=== PATIENT | female | born 1960 | race Caucasian/White ===

== ENCOUNTER 2019-03-25 12:03 | Emergency (ER) | payer BC, SELFPAY ==
[2019-03-25] VITALS (61 sets, daily range): BP systolic 108–158; BP diastolic 61–93; PULSE 62–101; RESP 10–27; TEMP 37.1; O2SAT 92–100
--- NOTE | 2019-03-25 12:16 | ED.GENADUL_ITS ---
Discharge Plan Disposition Patient Disposition: HOME Condition: Improving Discharge Details Chief Complaint: SOB Clinical Impression: Heart palpitations Primary Care Provider: Nahomi Perales ED Provider: Ivan Juarez Home Meds and New Rx's Prescriptions: Continued lisinopril 20 mg Tablet 20 mg PO DAILY RF: 0 bupropion HCl 100 mg Tablet Sustained-Release 12 Hr 100 mg PO DAILY RF: 0 Discharge Instructions Instructions: Palpitations (ED) Additional Instructions: I have ordered you an outpatient Holter monitor. Please call respiratory therapy in the morning to arrange a time to begin the monitor. We will ask care management to make you a follow-up appointment Dr. Perales following the Holter monitor. Home to rest today. Continue to hydrate with small, frequent sips of fluids. Return if develop recurrent discomfort, palpitations, or any other acute concerns. Medical Decision Making 58-year-old female presents with abrupt onset of shortness of breath and palpitations while at work. She denies chest pain. She states she felt lightheaded but that improved with rest and she did not have syncope. She arrives with blood pressure 150/79, history of hypertension, pulse 91, afebrile with 100% sat on room air. Differential diagnosis would include pulmonary embolism, benign arrhythmia that is corrected, ACS. Screening EKG obtained which reveals normal sinus rhythm, the rate is 93, the QRS is narrow, no ST segment elevation. Patient had IV access established, screening laboratories obtained and she is referred for chest x-ray. Chemistries reveal slight anion gap of 14 and potassium of 3.3. Troponin is negative, repeated and negative as well. CBC shows white count 10.9, hematocrit 42, platelets 388. D-dimer 327. Chest x-ray without focal findings. Patient's pain improved with a small aliquot of morphine and GI cocktail. She did not have a response to nitroglycerin. Patient relates she felt a fluttering in her chest earlier in this week. Today's work-up is benign. She may have had an episode of SVT or atrial dysrhythmia. I will order outpatient Holter monitor. She will follow-up with Dr. Perales in clinic for recheck. Discussed return precautions to the ER with the patient and her family prior to discharge. ECG Data Attestation: I personally reviewed and interpreted this ECG (s) as follows: Interpretation: EKG #2 at 1513 hrs.: Normal sinus rhythm, rate 64, QRS narrow, slight J-point elevation in V2 but no other acute ST segment changes. HPI General Mode of arrival: ambulatory . Date/Time Provider Initiated Documentation: 03/25/19 12:08 . Limitations to Documentation: no limitations . Information obtained by: patient . History of Present Illness 58 year old F presents to the emergency department with the chief complaint of Abrupt onset shortness of breath and palpitations with lightheadedness, described as moderate, and is localized to the chest. Patient reports no radiation. Patient started experiencing this minute(s) and it has been other (Improving). Rest improves symptom(s), Patient notes shortness of breath and other (Lightheaded without syncope); denies chest pain and syncope. Patient did receive the following treatments prior to arrival, none Related Data Home Medications Medication Instructions Recorded Confirmed bupropion HCl 100 mg PO DAILY 03/25/19 03/25/19 lisinopril 20 mg PO DAILY 03/25/19 03/25/19 Allergies Allergy/AdvReac Type Severity Reaction Status Date / Time No Known Allergies Allergy Unverified 03/25/19 12:12 General Stated Complaint: SOB CARMELA: 2 Review of Systems Narrative: States that she has recently been well. No fever, cough, chills. No leg pain or swelling. No prolonged immobilization or travel. 8 systems reviewed and otherwise negative [facility] Social History Do you feel safe at home: Yes Do you feel safe in your relationship?: Yes Exam Narrative Exam Narrative: GEN: awake, alert, oriented 3. Pleasant, well groomed, interactive. HEAD: Normocephalic, atraumatic ENT: Mucous membranes moist, oropharynx unremarkable, External ear exam unremarkable EYES: PERRL, EOMI NECK: Full ROM, no DAISY, no menigismus CHEST/RESP: Nontender, clear to auscultation bilateral, no wheeze/rhonchi/rales CARDIOVASCULAR: RRR, no murmur, rub kanu. 2+ Rad pulse bilateral ABDOMEN: Soft, nontender, no mass. +Bowel sounds EXT: Full ROM, no edema, no rash Neuro: Grossly normal neurologic exam, conversant, interactive. Psych: Speech fluent, thoughts congruent, affect normal Course Vital Signs Vital signs: Vital Signs Temperature 37.1 C 03/25/19 12:06 Pulse 91 H 03/25/19 12:06 Respiratory Rate 19 03/25/19 12:06 Blood Pressure 158/79 H 03/25/19 12:06 Pulse Oximetry 100 03/25/19 12:06 Temperature 37.1 C 03/25/19 12:06 Temperature Source Temporal Artery Scan 03/25/19 12:06 Pulse 91 H 03/25/19 12:06 Respiratory Rate 19 03/25/19 12:06 Respiratory Effort 03/25/19 12:10 Blood Pressure 158/79 H 03/25/19 12:06 Pulse Oximetry 100 03/25/19 12:06 Oxygen Delivery Method Room Air 03/25/19 12:06 Oxygen Flow Rate 0 03/25/19 12:06 Pain Level 0 03/25/19 12:06
[2019-03-25 12:29] LABS: Abs Immature Grans 0.02 k/cumm (0.0-0.09); Absolute Basophil Count 0.03 k/cumm (0.0-0.2); Absolute Lymphocyte Count 2.39 k/cumm (1.2-3.4); Absolute Monocyte Count 0.67 k/cumm (0.11-0.7); Absolute Neutrophil Count 7.76 k/cumm (1.2-6.7); Basophils % 0.3; Eosinophils % 0.9; HCT 42.3 % (36.0-46.0); Immature Grans % 0.2; Lymphocytes % 21.8; Mean Corp. HGB Concentration 33.1 g/dL (32.0-36.0); Mean Corpuscular Hemoglobin 28.2 pg (27.0-33.0); Mean Corpuscular Volume 85.3 fL (80-95); Mean Platelet Volume 10.3 fL (8.0-11.0); Monocytes % 6.1; Neutrophils % 70.7; Platelet Count 388 x1000/uL (130-400); RBC 4.96 m/cumm (4.00-5.20); White Blood Cell Count 10.97 k/cumm (4.4-10.8)
[2019-03-25] MEDS: Normal Saline 500 ML 1000 ML IV (12:30)
[2019-03-25 12:44] LABS: ALT 25 U/L (14-59); AST 16 U/L (15-37); Albumin 4.3 g/dL (3.4-5.0); Alkaline Phosphatase 68 U/L (46-116); Anion Gap 14.6 mmol/L (3-11); BUN 15 mg/dL (7-18); Bilirubin, Total 0.5 mg/dL (0.2-1.0); CO2 23.4 mmol/L (21.0-32.0); CREATININE 0.98 mg/dL (0.55-1.02); Calcium 9.4 mg/dL (8.5-10.1); Chloride 100 mmol/L (98-107); Estimated GFR 57.89 (mL/min/1.73m2); Glucose 144 mg/dL (70-100); Magnesium 1.8 mg/dL (1.8-2.4); Potassium 3.3 mmol/L (3.5-5.1); Sodium 138 mmol/L (136-145); Total Protein 7.8 g/dL (6.4-8.2)
[2019-03-25 12:45] LABS: Troponin I < 0.05 ng/mL (0.00-0.06)
[2019-03-25 12:57] LABS: D-Dimer 327 ng/mlFEU (<500)
--- NOTE | 2019-03-25 13:20 | DI.RAD_ITS ---
EXAM: XR PORTABLE CHEST AP INDICATION: palpitations, chest pain. COMPARISON: No exams were available for comparison TECHNIQUE: 2D digital imaging was performed. FINDINGS: Heart size and pulmonary vasculature are within normal limits. The lungs are clear. No effusion or pneumothorax is identified. No acute osseous abnormality is present. IMPRESSION: No acute pulmonary process.
[2019-03-25] MEDS: Ondansetron 4 MG/2 ML VIAL IVP (13:35)
--- NOTE | 2019-03-25 13:53 | DI.VRAD_ITS ---
PROCEDURE INFORMATION: Exam: XR Chest, 1 View Exam date and time: 03/25/2019 1:17 PM Clinical history: 58 years old, female; Other: Palpitations and chest pain TECHNIQUE: Imaging protocol: XR of the chest Views: 1 view. COMPARISON: No relevant prior studies available. FINDINGS: Lungs: Unremarkable. No consolidation. Pleural space: Unremarkable. No pleural effusion. No pneumothorax. Heart/Mediastinum: Unremarkable. No cardiomegaly. Bones/joints: Unremarkable. IMPRESSION: No acute findings. Dictated and Authenticated by: Giancarlo Uriostegui MD. Ordering:CARRILLO Love MD
[2019-03-25 16:00] LABS: Troponin I < 0.05 ng/mL (0.00-0.06)
--- NOTE | 2019-03-25 16:23 | NUR.NOTE ---
referral for holter monitor faxed to radiology, referral for f/u with pcp faxed to [facility] Dr. Mosher, [phone] Note:
== END 2019-03-25 16:29 | disposition home or self-care (01) ==
PROVIDERS: Emergency Provider Emergency Medicine
DX: R00.2 Palpitations (principal); R42 Dizziness and giddiness; I10 Essential (primary) hypertension
CPT/HCPCS: 36415; 80053; 93005; 96361; 96374; 96375; 96376; 99285; 71045; 83735; 84484; 85025; 85379; 93010; 99284; J2405

== ENCOUNTER 2019-03-26 11:07 | Outpatient (CLI) | payer BC, SELFPAY | END 2019-03-26 11:27 | PROVIDERS: PCP Family Medicine; Visit Provider Emergency Medicine | DX: R00.2 Palpitations (principal); I49.1 Atrial premature depolarization; I47.2 Ventricular tachycardia | CPT/HCPCS: 93225 ==

== ENCOUNTER 2019-03-28 13:04 | Outpatient (CLI) | payer BC, SELFPAY ==
--- NOTE | 2019-03-29 08:24 | W.HOLTRPT ---
Holter Monitor Report Holter Monitor Note: This is a 48-hour Holter monitor ordered for the indication of palpitations. ?The patient was in normal sinus rhythm for the majority of the recording time. ?The minimum heart rate was 52 bpm the maximum heart rate was 164 bpm and the mean heart rate was 79 bpm. ?There were no episodes of supraventricular tachycardia. There were rare (less than 1%) PACs ?There was one episode of ventricular tachycardia which lasted a total of 7 beats. There were rare (less than 1%) single ventricular ectopic beats ?There were no pauses greater than 3 seconds, no evidence of high degree heart block, and no episodes of atrial fibrillation. Date of service: 03/29/19 Time of Service: 08:25
== END 2019-03-28 13:24 ==
PROVIDERS: PCP Family Medicine; Visit Provider Emergency Medicine
DX: R00.2 Palpitations (principal); I49.1 Atrial premature depolarization; I47.2 Ventricular tachycardia
CPT/HCPCS: 93226

== ENCOUNTER 2019-07-10 01:04 | Outpatient (CLI) | payer BC, SELFPAY ==
--- NOTE | 2019-07-10 15:35 | DI.MAMMO_ITS ---
EXAM: MAMMO SCREENING CLINICAL HISTORY: SCREENING Z12.31. TECHNIQUE: Full field digital CC and MLO mammographic images were obtained with 3D tomosynthesis and utilizing computer aided detection (CAD). COMPARISON: 2011 and 2013 FINDINGS: Breast Density - Category B - Scattered areas of fibroglandular density Masses/Architectural Distortion: None seen. Microcalcifications: No suspicious pleomorphic-type calcifications are seen. Skin Thickening/Nipple Retraction: None. Axilla: Unremarkable. IMPRESSION: 1. BI-RADS category 1, negative. No significant interval change with no specific features of maligna ncy noted. 2. Unless there is more urgent need, screening mammography is recommended, as per [place] [employer] guidelines. A negative radiographic report should not delay biopsy if a dominant or clinically suspicious mass is present. Up to ten percent of cancers are not identified on mammography. A negative report may reinforce clinical impression. Adenosis and dense breasts may obscure an underlying neoplasm. False positive reports average 6 to 10%. Patient will receive a letter notifying them of these results.
== END 2019-07-10 01:24 ==
PROVIDERS: PCP Family Medicine; Visit Provider Family Medicine
DX: Z12.31 Encounter for screening mammogram for malignant neoplasm of breast (principal)
CPT/HCPCS: 77063; 77067

== ENCOUNTER 2020-05-10 10:18 | Emergency (ER) | payer BC, SELFPAY ==
[2020-05-10 10:24] VITALS: BP 157/99; PULSE 102; RESP 18; TEMP 36.5; O2SAT 100
--- NOTE | 2020-05-10 10:30 | DI.CT_ITS ---
EXAM: CT ABDOMEN PELVIS W CLINICAL HISTORY: lower abdominal cramping, brbpr 2 days TECHNIQUE: Imaging Protocol: Axial computed tomography images with coronal and sagittal reformatted images were created and reviewed CONTRAST MATERIAL: Intravenous: Omnipaque 350 Contrast volume:100 mL Oral: No COMPARISON: No exams were available for comparison FINDINGS: ABDOMEN: Lung Bases: Atelectatic changes are seen in the lung bases. Liver: Normal density. No measurable mass. Portal, Superior Mesenteric, and Splenic Veins: Unremarkable. Gallbladder and Biliary Tract: No radiodense calculus or dilation. Pancreas: Normal density, no abnormal calcifications or inflammatory process. Spleen: Normal. Adrenals: No masses seen. Kidneys: Normal size, contour and axis. No radiodense stones or obstructive uropathy. There is a 0.9 cm simple cyst in the midpole of the left kidney. Abdominal Aorta: Abdominal portion non-dilated. Bowel: There is no evidence of bowel obstruction. There is concentric bowel wall thickening involvin g the distal transverse colon the descending colon and proximal sigmoid colon. There is associated p ericolonic inflammation. No evidence of acute appendicitis. Peritoneal Cavity: No ascites, collection or mesenteric inflammatory response. Lymph Nodes: Within normal limits. Bones: Unremarkable. Soft Tissues: There is a small fat containing umbilical hernia. PELVIS: Bladder: Symmetric distention, no gross wall thickening. Reproductive Organs: Unremarkable as visualized. Lymph Nodes: Within normal limits. Bones: There are degenerative changes seen in the lumbar spine. IMPRESSION: Bowel wall thickening with associated pericolonic fat stranding involving the distal transverse colon and the descending colon and the proximal sigmoid colon suspicious for an infectious or inflammatory colitis. No abscess or free air. RADIATION DOSE DELIVERED: 798.9mGy.cm Total DLP DATA REPOSITORY: All CT scans at this facility are submitted to the National Radiology Data Registry (NRDR) Dose Index Registry (DIR) with the [employer] (A[employer]). RADIATION OPTIMIZATION: All CT scans at this facility use at least one of these dose optimization te chniques: automated exposure control; mA and/or kV adjustment per patient size (includes targeted exa ms where dose is matched to clinical indication); or iterative reconstruction.
[2020-05-10 10:47] LABS: Lactate 1.2 mmol/L (0.6-1.4)
[2020-05-10 10:49] LABS: Abs Immature Grans 0.06 10^3/uL (0.0-0.06); Absolute Basophil Count 0.05 10^3/uL (0.0-0.2); Absolute Monocyte Count 0.86 10^3/uL (0.1-0.8); Basophils % 0.3; Eosinophils % 0.3; HCT 43.1 % (36.0-46.0); HGB 14.1 g/dL (11.2-15.7); Immature Grans % 0.3; Lymphocytes % 9.3; MCH 27.9 pg (27.0-33.0); MCHC 32.7 % (32.0-36.0); MCV 85.3 fL (80-95); MPV 10.7 fL (8.0-11.0); Monocytes % 4.8; Nucleated RBC 0 %; Platelet Count 338 10^3/uL (130-400); RBC 5.05 10^6/uL (3.93-5.22); RDW-SD 43.8 fL; WBC 17.83 10^3/uL (4.4-10.8)
[2020-05-10 10:54] LABS: Absolute Eosinophil Count 0.05 10^3/uL (0.0-0.7); Absolute Lymphocyte Count 1.66 10^3/uL (1.2-3.4); Absolute Neutrophil Count 15.16 10^3/uL (1.2-6.7)
[2020-05-10 11:15] LABS: ALT 18 U/L (14-59); AST 12 U/L (15-37); Albumin 4.3 g/dL (3.4-5.0); Alkaline Phosphatase 76 U/L (46-116); Anion Gap 9.6 mmol/L (3-11); BUN 20 mg/dL (7-18); Bilirubin, Total 0.6 mg/dL (0.2-1.0); CO2 24.4 mmol/L (21.0-32.0); CREATININE 0.95 mg/dL (0.55-1.02); Calcium 9.6 mg/dL (8.5-10.1); Chloride 101 mmol/L (98-107); Glucose 116 mg/dL (74-106); Potassium 3.9 mmol/L (3.5-5.1); Sodium 135 mmol/L (136-145)
[2020-05-10 11:22] LABS: Lipase 73 U/L (73-393)
--- NOTE | 2020-05-10 11:37 | ED.GENADUL_ITS ---
Discharge Plan Disposition Patient Disposition: HOME Condition: Stable Discharge Details Clinical Impression: Acute colitis Primary Care Provider: Royce Dangelo ED Provider: Alphonso Sanchez Home Meds and New Rx's Prescriptions: Continued lisinopril 20 mg Tablet 20 mg PO DAILY RF: 0 bupropion HCl 100 mg Tablet Sustained-Release 12 Hr 100 mg PO DAILY RF: 0 Discharge Instructions Instructions: Rectal Bleeding (ED), Colitis (ED) Additional Instructions: Please maintain a clear liquid diet today. Tomorrow you may advance your diet to bland soft foods like rice. Continue bland soft diet for 3 days and then advance slowly thereafter as tolerated. Please follow-up with general surgery on Tuesday at 10 AM. Please contact your primary care physician to arrange follow-up. Return to the ER for any worsening or new concerning symptoms including increased bleeding, increased pain, or any other worrisome symptoms. Stand Alone Forms: Work Release Referrals: Royce Dangelo [Primary Care Provider] - Tamika Toth MD [[facility] STAFF PHYSICIAN] - Medical Decision Making [id number]??59-year-old female presents with bright red blood per rectum and lower abdominal cramping. Patient tender bilateral lower abdomen with no peritoneal findings. Patient mildly hypertensive and tachycardic on initial vitals. On my exam she is not tachycardic. Concern for acute diverticulitis with diverticular bleeding versus neoplasm versus other. Patient has no nausea, vomiting, or upper abdominal discomfort. --Labs reviewed and leukocytosis noted. Lactate is normal. CT of the abdomen and pelvis was reviewed and interpreted by radiology: Mural thickening and pericolonic stranding from transverse colon to rectosigmoid colon could reflect colitis, infectious inflammatory. No free air and no significant fluid collection in the intraperitoneal space. Incidental small fat-containing umbilical hernia noted. Results were discussed with the patient. Patient reassessed and continues to have some lower abdominal discomfort but remains stable. Patient denies recent antibiotic use over the past month but does recall being treated for urinary tract infection sometime over the past few months. Plan will be to check stool sample for bacterial pathogens and C. diff icile. I called and spoke with Dr. Toth, on-call general surgeon and discussed ED presentation and course including CT findings. HPI General Mode of arrival: ambulatory . Date/Time Provider Initiated Documentation: 05/10/20 10:33 . Limitations to Documentation: no limitations . Information obtained by: patient . HPI Narrative: 59-year-old female former smoker, history of hemorrhoids, presents with chief complaint of rectal bleeding. Bleeding started last night with a bowel movement and has persisted this morning. Bleeding is bright red blood. Small amount last night mixed with stool and another couple episodes this morning without stool. She has associated lower abdominal discomfort described as cramping, bilateral. She had some associated sweats last night. No cough or shortness of breath. No upper abdominal pain. Patient notes she had a colonoscopy about 8 years ago in [place] it was noted to be normal with routine 10-year follow-up recommended. Related Data Home Medications Medication Instructions Recorded Confirmed bupropion HCl 100 mg PO DAILY 03/25/19 05/10/20 lisinopril 20 mg PO DAILY 03/25/19 05/10/20 Allergies Allergy/AdvReac Type Severity Reaction Status Date / Time No Known Allergies Allergy Unverified 05/10/20 10:30 General Stated Complaint: GI Bleed CARMELA: 3 Review of Systems All systems reviewed & are unremarkable except as noted in HPI and below Constitutional Constitutional: Reports as per HPI and Denies fever(s) Cardiovascular Cardiovascular: Denies chest pain Gastrointestinal Gastrointestinal: Reports as per HPI [facility] Social History Smoking/Tobacco Use Status: Former Tobacco Use Smoking risk assessment performed?: Yes Alcohol Intake: current Alcohol Intake frequency: a few times a month Substance use type: marijuana Details: edibles Do you feel safe at home: Yes Do you feel safe in your relationship?: Yes Exam Const General: cooperative and no acute distress HENMT Mouth: moist mucous membranes Eyes Conjunctivae: normal conjunctivae Sclera: normal sclerae Neck Neck: trachea midline and supple Resp Auscultation: clear to auscultation bilaterally, no rales, no rhonchi and no wheezes Cardio Rate: regular rate and not tachycardic Rhythm: regular rhythm GI Palpation: soft, not firm, no guarding, no masses, not rigid and tender in the LLQ and in the RLQ; with no rebound tenderness Skin General skin exam: no rashes or lesions noted Neuro General: patient alert, patient awake, patient oriented x3 and tone normal Extrem General: no edema Psych Appearance: grossly normal Mental Status: mental status grossly normal Speech and Movement: speech and movement normal Course Vital Signs Vital signs: Vital Signs Temperature 36.5 C 05/10/20 10:24 Pulse 102 H 05/10/20 10:24 Respiratory Rate 18 05/10/20 10:24 Blood Pressure 157/99 H 05/10/20 10:24 Pulse Oximetry 100 05/10/20 10:24 Temperature 36.5 C 05/10/20 10:24 Temperature Source Skin 05/10/20 10:24 Pulse 102 H 05/10/20 10:24 Respiratory Rate 18 05/10/20 10:24 Respiratory Effort Non-Labored 05/10/20 10:29 Blood Pressure 157/99 H 05/10/20 10:24 Blood Pressure Position Sitting 05/10/20 10:24 Pulse Oximetry 100 05/10/20 10:24 Oxygen Delivery Method Room Air 05/10/20 10:24 Oxygen Flow Rate 0 05/10/20 10:24 Pain Level 3 05/10/20 10:24 Lab/Test Results Lab/Test Results: Laboratory Tests Range/Units 05/10/20 05/10/20 05/10/20 10:35 10:35 10:35 WBC (4.4-10.8) 10^3/uL RBC (3.93-5.22) 10^6/uL Hgb (11.2-15.7) g/dL Hct (36.0-46.0) % MCV (80-95) fL MCH (27.0-33.0) pg MCHC (32.0-36.0) % RDW (11.7-14.6) % Plt Count (130-400) 10^3/uL MPV (8.0-11.0) fL Immature Gran % Neutrophils % Lymphocytes % Monocytes % Eosinophils % Basophils % Nucleated RBC % % Absolute Neutrophils (1.2-6.7) 10^3/uL Absolute Lymphocytes (1.2-3.4) 10^3/uL Absolute Monocytes (0.1-0.8) 10^3/uL Absolute Eosinophils (0.0-0.7) 10^3/uL Absolute Basophils (0.0-0.2) 10^3/uL VBG Lactate (0.6-1.4) mmol/L 1.2 Sodium (136-145) mmol/L Potassium (3.5-5.1) mmol/L Chloride (98-107) mmol/L Carbon Dioxide (21.0-32.0) mmol/L Anion Gap (3-11) mmol/L BUN (7-18) mg/dL Creatinine (0.55-1.02) mg/dL Estimated GFR/1.73 m2 (mL/min/1.73m2) Glucose (74-106) mg/dL Calcium (8.5-10.1) mg/dL Total Bilirubin (0.2-1.0) mg/dL AST (15-37) U/L ALT (14-59) U/L Alkaline Phosphatase (46-116) U/L Total Protein (6.4-8.2) g/dL Albumin (3.4-5.0) g/dL Lipase (73-393) U/L 73 Patient ABO/Rh O Positive Antibody Screen Negative Range/Units 05/10/20 05/10/20 10:35 10:35 WBC (4.4-10.8) 10^3/uL 17.83 H RBC (3.93-5.22) 10^6/uL 5.05 Hgb (11.2-15.7) g/dL 14.1 Hct (36.0-46.0) % 43.1 MCV (80-95) fL 85.3 MCH (27.0-33.0) pg 27.9 MCHC (32.0-36.0) % 32.7 RDW (11.7-14.6) % 14.0 Plt Count (130-400) 10^3/uL 338 MPV (8.0-11.0) fL 10.7 Immature Gran % 0.3 Neutrophils % 85.0 Lymphocytes % 9.3 Monocytes % 4.8 Eosinophils % 0.3 Basophils % 0.3 Nucleated RBC % % 0 Absolute Neutrophils (1.2-6.7) 10^3/uL 15.16 H Absolute Lymphocytes (1.2-3.4) 10^3/uL 1.66 Absolute Monocytes (0.1-0.8) 10^3/uL 0.86 H Absolute Eosinophils (0.0-0.7) 10^3/uL 0.05 Absolute Basophils (0.0-0.2) 10^3/uL 0.05 VBG Lactate (0.6-1.4) mmol/L Sodium (136-145) mmol/L 135 L Potassium (3.5-5.1) mmol/L 3.9 Chloride (98-107) mmol/L 101 Carbon Dioxide (21.0-32.0) mmol/L 24.4 Anion Gap (3-11) mmol/L 9.6 BUN (7-18) mg/dL 20 H Creatinine (0.55-1.02) mg/dL 0.95 Estimated GFR/1.73 m2 (mL/min/1.73m2) 59.80 Glucose (74-106) mg/dL 116 H Calcium (8.5-10.1) mg/dL 9.6 Total Bilirubin (0.2-1.0) mg/dL 0.6 AST (15-37) U/L 12 L ALT (14-59) U/L 18 Alkaline Phosphatase (46-116) U/L 76 Total Protein (6.4-8.2) g/dL 8.0 Albumin (3.4-5.0) g/dL 4.3 Lipase (73-393) U/L Patient ABO/Rh Antibody Screen
[2020-05-10] MEDS: Omnipaque 350 MG/ML 100 ML BTL IJ (11:41)
[2020-05-10] MEDS: Normal Saline Flush 10 ML SYR IVP (11:41)
--- NOTE | 2020-05-10 12:02 | DI.VRAD_ITS ---
PROCEDURE INFORMATION: Exam: CT Abdomen And Pelvis With Contrast Exam date and time: 05/10/2020 10:35 AM Age: 59 years old Clinical indication: Abdominal pain; Prior surgery; Surgery date: 6+ months; Surgery type: Appendectomy and c section TECHNIQUE: Imaging protocol: Computed tomography of the abdomen and pelvis with intravenous contrast. Contrast material: OMNI 350; Contrast volume: 100 ml; Contrast route: INTRAVENOUS (IV); COMPARISON: No relevant prior studies available. FINDINGS: Lungs: There are bibasilar atelectasis. Liver: Normal. No mass. Gallbladder and bile ducts: Normal. No calcified stones. No ductal dilation. Pancreas: Normal. No ductal dilation. Spleen: Normal. No splenomegaly. Adrenal glands: Normal. No mass. Kidneys and ureters: Normal. No hydronephrosis. Stomach and bowel: There is long segment mucosal thickening of the rectosigmoid a, descending colon and to lesser extent transverse colon with mild pericolonic fat stranding. Appendix: Appendix is not visualized, consistent with prior history of appendicectomy. Intraperitoneal space: Unremarkable. No free air. No significant fluid collection. Vasculature: Unremarkable. No abdominal aortic aneurysm. Lymph nodes: Unremarkable. No enlarged lymph nodes. Urinary bladder: Unremarkable as visualized. Reproductive: Uterus is grossly unremarkable. Adnexa are normal. Bones/joints: There is nonspecific sclerosis in the right acetabulum, probably bony island.. Soft tissues: There is a small fat containing umbilical hernia. IMPRESSION: Mural thickening and pericolonic stranding from transverse colon to rectosigmoid colon could reflect colitis, infectious inflammatory. Dictated and Authenticated by: Sandip Simpson MD. Ordering:HILARIO Werner MD
[2020-05-10 13:01] VITALS: BP 136/76; PULSE 80; RESP 16; TEMP 37; O2SAT 98
[2020-05-10 14:16] LABS: C Diff PCR Negative (Negative)
== END 2020-05-10 14:00 | disposition home or self-care (01) ==
PROVIDERS: Emergency Provider Student in an Organized Health Care Education/Training Program; PCP Family Medicine
DX: K51.911 Ulcerative colitis, unspecified with rectal bleeding (principal); R10.30 Lower abdominal pain, unspecified
CPT/HCPCS: 36415; 80053; 83690; 86850; 86900; 86901; 87493; 87505; 99285; 74177; 83605; 85025; 99284; J3490

== ENCOUNTER 2020-05-11 10:34 | Outpatient (REF) | payer BC, SELFPAY ==
[2020-05-13 11:33] LABS: Campylobacter PCR Negative (Negative); Salmonella PCR Negative (Negative); Shiga Toxin PCR Negative (Negative); Shigella/Enteroinvasive Ecoli Negative (Negative)
== END 2020-05-11 10:54 ==
LOC: LBN 10:34
PROVIDERS: PCP Family Medicine; Visit Provider Student in an Organized Health Care Education/Training Program
DX: K52.9 Noninfective gastroenteritis and colitis, unspecified (principal)
CPT/HCPCS: 87505

== ENCOUNTER 2020-06-19 04:26 | Outpatient (CLI) | payer BC, SELFPAY ==
[2020-06-20 22:16] LABS: COVID-19 RT-PCR Result NEGATIVE (Negative)
== END 2020-06-19 04:46 ==
PROVIDERS: PCP Family Medicine; Visit Provider Surgery
DX: Z11.52 Encounter for screening for COVID-19 (principal); Z01.818 Encounter for other preprocedural examination
CPT/HCPCS: U0003

== ENCOUNTER 2020-06-23 06:13 | Day surgery (SDC) | payer BC, SELFPAY ==
[2020-06-23 06:38] VITALS: BP 143/80; PULSE 74; RESP 18; TEMP 36.7; O2SAT 98
[2020-06-23] MEDS: Lactated Ringers 1,000 ML 80 ML IV (06:57)
--- NOTE | 2020-06-23 07:09 | W.COLOREPORT ---
Date of service: 06/23/20 Time of Service: 07:25 Colonoscopy Report Date of procedure: 06/23/20 Pre-op diagnosis general: Hx of polyps Post-op diagnosis procedure note: other (mild diverticulosis) Procedure: Colonoscopy Surgeon: Natalia Jacobson Anesthesia proc note operative: other (General/ASA 2/Jackie Fuller CRNA) Estimated blood loss (mL): 0 Pathology: none sent Complications: None Disposition: same day Indications: Mrs. Mosher is a pleasant 59-year-old female who is seen in the office today for a colonoscopy. Her last colonoscopy was in 2011 with time she had a tubular adenoma. She had a bout of what was felt to be viral gastroenteritis at the beginning of last April. The diarrhea and bleeding lasted a day. She has not had any issues since then. She has had no weight loss. There is no family history of colon cancer. The colonoscopy procedure was reviewed. Risks and benefits and alternatives were reviewed with her. We also reviewed the prep in detail and Covid testing. Patient was asked to hold her lisinopril the morning of the procedure. Risks, benefits and complications have been reviewed. Complications include but are not limited to bleeding, pain, perforation, missed small lesion/polyp, sore throat, aspiration and adverse reaction to the medications. Questions were entertained and answered to their satisfaction and they wished to proceed. No guarantees were given or implied. COVID-19 testing explained to the patient. Reason for test reviewed. Quarantine per state requirements reviewed with patient. Patient understands and agrees to testing. Proceed with colonoscopy under sedation. Prep: Miralax/Dulcolax Procedure Start Time: 07:23 Procedure End Time: 07:48 Retraction Time: 16 minutes Findings: mild diverticulosis Procedure Description: After informed consent was obtained the patient was taken to the procedure room and placed in a left decubitous position. Monitors were applied and a time out was done. The patients name, date of , procedure, allergies to medications and metal in their body was reviewed. The patient was then sedated. Once sedated and comfortable a rectal exam was done. External exam was normal. Internal exam revealed a normal sphincter tone and no palpable masses. The scope was then introduced and retro-flexed. No internal hemorrhoids, polyps or masses were identified on retro-flexion. The scope was then advanced to the cecum without difficulty. The ileocecal valve and appendiceal orifice were identified. The prep was adequate. The scope was then slowly retracted over 16 minutes back into the rectum. There were no polyps. There was mild diverticulosis noted of the descending and sigmoid colon. The scope was removed and the patient was woken up and taken back to Same day surgery in stable condition. The patient tolerated the procedure well and there were no immediate complications. Follow up: The patient should follow up in 10 years unless they develop changes in bowel habits or other new gastrointestinal complaints.
--- NOTE | 2020-06-23 07:10 | W.PM.DSUDISC ---
Discharge Plan Disposition Patient Disposition: HOME Condition: Good Discharge Details Reason For Visit: Colonoscopy Attending Provider: Natalia Jacobson Primary Care Provider: Royce Dangelo Home Meds and New Rx's Prescriptions: Continued Neuriva De-Stress 100-200-10 mg Capsule PO RF: 0 lisinopril 20 mg Tablet 20 mg PO DAILY RF: 0 bupropion HCl 100 mg Tablet Sustained-Release 12 Hr 100 mg PO DAILY RF: 0 Discontinued bisacodyl [Dulcolax (bisacodyl)] 5 mg tablet,delayed release (DR/EC) 5 mg PO ONCE Qty: 4 RF: 0 polyethylene glycol 3350 17 gram/dose powder 17 g PO ONCE Qty: 238 RF: 0 Discharge Instructions Instructions: Diverticulosis (DC) Additional Instructions: Findings: mild diverticulosis Follow up: 10 years Please call if you develop: fevers >101.5 Nausea or Vomiting Abdominal pain that is not transient DAY SURGERY UNIT POST ENDOSCOPY INSTRUCTIONS 1. Because there will be medication in your system for the next 24 hours, you may feel a little sleepy. Your coordination will be affected. Therefore: a. Do not drive or operate dangerous equipment for 24 hours. b. Do not drink alcohol beverages for 24 hours (not even beer). c. Plan to go home and rest for the day. 2. Generally there are no restrictions on your activity after a day or so has gone by, but you may feel a bit fatigued for a few days. 3 After you arrive home you may have a light meal and return to a normal diet as you can tolerate it without feeling sick to your stomach. 4. After surgery, you may feel pain or discomfort. This should be only transient, but if it persists please contact your doctor. 5. If there are any questions regarding the findings of your procedure, please feel free to contact your doctor. 6. If you are unable to contact your doctor with a problem, contact the hospital at [phone]. 7. Continue all your regular medications unless directed otherwise. I understand the above instructions and have no questions. Signature of Patient or Responsible Adult Escort Date/Time Name of Responsible Adult Escort Signature of Nurse Date/Time Activity:: Activity as Tolerated Diet:: high fiber diet Discharge Orders Discharge Orders: Discharge Order (Routine); Ordered 06/23/20 Ordered By: Natalia Jacobson
[2020-06-23 08:30] VITALS: BP 116/68; PULSE 57; RESP 18; TEMP 36.2; O2SAT 98
[2020-06-23 09:05] VITALS: BP 142/81; PULSE 73
== END 2020-06-23 09:08 | disposition home or self-care (01) ==
PROVIDERS: PCP Family Medicine; Visit Provider Surgery
PROC: 0DJD8ZZ Inspection of Lower Intestinal Tract, Via Natural or Artificial Opening Endoscopic (ICD-10-PCS; CPT 45378; principal; 2020-06-23 07:30)
DX: Z12.11 Encounter for screening for malignant neoplasm of colon (principal); Z86.010 Personal history of colon polyps; K57.30 Diverticulosis of large intestine without perforation or abscess without bleeding
CPT/HCPCS: 45378; J2001

== ENCOUNTER 2021-06-01 00:56 | Outpatient (CLI) | payer BC, SELFPAY ==
--- NOTE | 2021-06-01 06:45 | DI.MAMMO_ITS ---
Exam(s) MAMMO SCREENING EXAM: MAMMO SCREENING CLINICAL HISTORY: screening,z12.39 TECHNIQUE: Mammograms were interpreted according to the usual protocol including computer analysis w [employer] CAD system, tomosynthesis and C-view imaging. COMPARISON: 2011 through 2019 FINDINGS: The breasts are composed of scattered fibroglandular densities, Breast Density category B. No suspicious masses or suspicious microcalcifications are seen. No skin thickening or abnormal axillary lymph nodes are seen. There has been no significant change from prior exams. IMPRESSION: BI-RADS Category 1, Negative mammogram Yearly screening mammography is recommended. Breast Density - Category B, scattered fibroglandular densities. A negative radiographic report should not delay biopsy if a dominant or clinically suspicious mass is present. Up to ten percent of cancers are not identified on mammography. A negative report may reinforce clinical impression. Adenosis and dense breasts may obscure an underlying neoplasm. False positive reports average 6 to 10%. Patient will receive a letter notifying them of these results.
== END 2021-06-01 01:16 ==
PROVIDERS: PCP Nurse Practitioner Adult Health; Visit Provider Nurse Practitioner Adult Health
DX: Z12.31 Encounter for screening mammogram for malignant neoplasm of breast (principal)
CPT/HCPCS: 77063; 77067

== ENCOUNTER 2022-10-13 20:54 | Outpatient (REF) | payer BC, SELFPAY ==
[2022-10-13 23:12] LABS: Bacteria Few HPF (Negative); C & S Indicated? C&S Done As Ordered; Crystals Negative HPF (Negative); Epithelial Cells Few HPF (Negative); Mucus Negative (Negative); WBC >50 HPF (0-5)
== END 2022-10-13 20:55 | disposition home or self-care (01) ==
LOC: LBN 20:54
PROVIDERS: PCP Nurse Practitioner Adult Health; Visit Provider Physician Assistant Medical
DX: R30.0 Dysuria (principal)
CPT/HCPCS: 87077; 81015; 87086; 87186

== ENCOUNTER 2023-03-21 01:15 | Outpatient (CLI) | payer BC, SELFPAY | END 2023-03-21 01:35 | LOC: DI 01:15 | PROVIDERS: PCP Nurse Practitioner Adult Health; Visit Provider Nurse Practitioner Adult Health | DX: Z12.31 Encounter for screening mammogram for malignant neoplasm of breast (principal) | CPT/HCPCS: 77063; 77067 ==

== ENCOUNTER 2023-12-18 10:27 | Emergency (ER) | payer OTHER, SELFPAY ==
[2023-12-18 10:35] VITALS: BP 150/110; PULSE 81; RESP 18; TEMP 36.8; O2SAT 97
--- NOTE | 2023-12-18 10:45 | DI.RAD_ITS ---
Exam(s) XR FOREARM LT EXAM: XR FOREARM LT CLINICAL HISTORY: fall, mid forearm pain. TECHNIQUE: 2D digital imaging was performed. COMPARISON: CR,XR XR HUMERUS LT from 12/18/2023 FINDINGS: Two views. There is some soft tissue swelling over the dorsal forearm but no evidence of acute fracture nor disl ocation. No elbow joint effusion. No radiopaque foreign bodies. IMPRESSION: Dorsal soft tissue swelling. No acute osseous findings in the forearm bones. DATA REPOSITORY: RADIATION DOSE DELIVERED:
--- NOTE | 2023-12-18 10:45 | DI.RAD_ITS ---
Exam(s) XR HUMERUS LT EXAM: XR HUMERUS LT CLINICAL HISTORY: fall, left arm pain. TECHNIQUE: 2D digital imaging was performed. COMPARISON: No exams were available for comparison FINDINGS: Two views No evidence of fracture nor dislocation of the humerus. Bone density normal. No osseous lesions. N o radiopaque foreign body. IMPRESSION: Unremarkable humerus DATA REPOSITORY: RADIATION DOSE DELIVERED:
--- NOTE | 2023-12-18 10:45 | DI.RAD_ITS ---
Exam(s) XR RIBS LT PA CHEST 3V EXAM: XR RIBS LT PA CHEST 3V CLINICAL HISTORY: fall, left lateral rib pain. TECHNIQUE: 2D digital imaging was performed. COMPARISON: CR,XR XR PORTABLE CHEST AP from 03/25/2019 FINDINGS: Total four views: Left ribs-three views-on 1 image there is subtle suggestion of a nondisplaced fracture of the left 11 th rib. Chest-single frontal view: Heart size normal. Mediastinum not widened or shifted. Lungs are clear. No infiltrates nor pleural effusions. No pneumothorax. No lung contusion. IMPRESSION: Possible subtle nondisplaced fracture of the left 11th rib, seen on only 1 image. Recommend correlat ion with site of maximum tenderness. No pneumothorax nor other pulmonary findings. Report called by myself to ER physician 12/18/2023 1:52 p.m. DATA REPOSITORY: RADIATION DOSE DELIVERED:
--- NOTE | 2023-12-18 10:53 | ED.GENADUL_ITS ---
Discharge Plan Disposition Patient Disposition: Home Condition: Stable Discharge Details Chief Complaint: Trauma Clinical Impression: Closed fracture of neck of left radius, Fracture of rib Primary Care Provider: Angelica Browne ED Provider: Iain Phelps Home Meds and New Rx's Prescriptions: No Action lisinopril 20 mg tablet 20 mg PO DAILY Qty: 90 3RF Rx Instructions: BP bupropion HCl 150 mg tablet sustained-release 12 hr See Rx Instructions .ROUTE .COMPLEX Qty: 180 3RF Dose Instruction: TAKE ONE TABLET BY MOUTH TWICE A DAY TAKE SECOND DOSE NO LATER THAN 3PM. Rx Instructions: TAKE ONE TABLET BY MOUTH TWICE A DAY TAKE SECOND DOSE NO LATER THAN 3PM. ibuprofen [IBU] 800 mg tablet 800 mg PO ONCE Discharge Instructions Instructions: Rib fractures in adults, Forearm Fracture (DC) Additional Instructions: Please follow-up with your primary care physician as well as orthopedic clinic. Please return to the emergency department for any worsening symptoms HPI General Date/Time Provider Initiated Documentation: 12/18/23 10:46 . HPI Narrative: 63-year-old female presents after slip and fall in a freezer at work, found her left side and left arm, pain to left ribs and left forearm, no head injury or back injury no neck pain, no loss of consciousness. Denies blood thinner use Related Data Home Medications ?Medication ?Instructions ?Recorded ?Confirmed lisinopril 20 mg tablet 20 mg PO DAILY Blood pressure #90 05/14/21 12/18/23 tabs bupropion HCl 150 mg tablet,12 hr See Rx Instructions .Route 10/12/23 12/18/23 sustained-release .COMPLEX #180 tabs ibuprofen 800 mg tablet (IBU) 800 mg PO ONCE 12/18/23 12/18/23 Previous Rx's ?Medication ?Instructions ?Recorded lisinopril 20 mg tablet 20 mg PO DAILY Blood pressure #90 05/14/21 tabs bupropion HCl 150 mg tablet,12 hr See Rx Instructions .Route 10/12/23 sustained-release .COMPLEX #180 tabs Allergies Allergy/AdvReac Type Severity Reaction Status Date / Time No Known Allergies Allergy Verified 12/18/23 10:39 General Stated Complaint: Trauma CARMELA: 2 Exam Narrative Exam Narrative: Alert oriented interactive mildly uncomfortable No craniofacial trauma no midline spinal tenderness Lungs clear bilaterally no rales rhonchi or wheezes Normal rate and rhythm, no murmurs rubs or gallops Abdomen soft nontender nondistended Mild discomfort to palpation left lateral ribs without crepitus step-off or deformity Holding left arm adducted to side in flexion, range of motion elbow and shoulder intact range of motion wrist and fingers intact full flexion extension, median radial and ulnar nerve sensory distribution intact, good cap refill strong radial pulse point tenderness over mid forearm exacerbated by supination Course Vital Signs Vital signs: Vital Signs Temperature 36.8 C 12/18/23 10:35 Pulse 81 12/18/23 10:35 Respiratory Rate 18 12/18/23 10:35 Blood Pressure 150/110 H 12/18/23 10:35 Pulse Oximetry 97 12/18/23 10:35 Temperature 36.8 C 12/18/23 10:35 Pulse 81 12/18/23 10:35 Respiratory Rate 18 12/18/23 10:35 Blood Pressure 150/110 H 12/18/23 10:35 Blood Pressure Position Sitting 12/18/23 10:35 Pulse Oximetry 97 12/18/23 10:35 Oxygen Delivery Method Room Air 12/18/23 10:35 Oxygen Flow Rate 0 12/18/23 10:35 Pain Level 8 12/18/23 10:35 Medical Decision Making 63-year-old female presents after slip and fall in freezer at work, pain to left ribs and left forearm, hemodynamically stable afebrile nontoxic, alert oriented airway breathing circulation intact, point tenderness to the left lateral ribs without step-off crepitus or deformity, no respiratory distress, point tenderness to forearm left worse with supination full range of motion elbow shoulder wrist fingers good capillary refill neurovascular exam intact, consider rib contusion versus rib fracture lower suspicion for pneumothorax, must consider contusion to forearm versus radial ulnar fracture versus less likely elbow dislocation will obtain x-ray ribs and chest as well as x-ray of humerus and forearm, analgesia anti-inflammatory no evidence of cranial trauma or spinal trauma, no evidence of abdominal trauma. 14: 08 he report concern for radial neck fracture, patient placed in sugar-tong splint, hemodynamically and neurovascularly intact. X-ray of chest and ribs read as negative by V rad however over read by our radiologist in-house as possible 11th rib fracture, patient has no respiratory symptoms is hemodynamically stable will be given some spirometer. Home care instructions and return precautions to be given. Patient will be given referral to orth opedic clinic for follow-up Quality:SDOH Health Related Social Needs: No Data to Display PFSH All Active Problems (Updated 12/18/23 @ 14:09 by Iain Phelps MD) Fracture of rib (Acute) Closed fracture of neck of left radius (Acute) Depression (Chronic) Menopausal Hypertension (Chronic) RX Lisinopril; Goal BP <130/80 Snores (Chronic) No apnea nor daytime sleepiness History of nicotine dependence (Chronic) Quit 2010 Family history of dementia (Chronic) h/o normal screening Atrophic vaginitis (Chronic) Estogen topical cream Hx of adenomatous colonic polyps (Chronic) 2015; q5y colonscopies 2020 colonoscopy no polyps Medical History Acute colitis (~05/10/20) COVID-19 (~08/20/21) Depression Menopausal Diverticulosis Colonoscopy 2020 Ear lesion Left superior helix; resolved 2022 Surgical History History of endometrial ablation Hx of appendectomy (~1993) Hx of section x2 1985 and 1991 Hx of colonoscopy Family History Father , Late 60s; massive CO Heart disease Diabetes Hypertension Maternal Cousin Crohn's colitis Mother , from Dementia in late 60s Dementia Cancer melanoma Hypertension Social History Smoking/Tobacco Use Status: Former Tobacco Use Quit Date: 05/30/10 Tobacco: How many years used: 9 Quit status: quit date established Smoking risk assessment performed?: Yes Alcohol Intake: current Alcohol Intake frequency: holidays/special occasions only Alcohol type: beer, wine and hard liquor Drug use: Occasionally Substance use type: marijuana Details: edibles. Alcohol: unknown. Edibles: 3-4 weeks Household members: spouse Housing: house Sexually active: Yes Do you think of yourself as: straight/heterosexual Current gender identity: female Do you feel safe at home: Yes Do you feel safe in your relationship?: Yes History History 3 Para 3 Hx # Term Pregnancies Multiple births Hx # Pregnancies Ectopic pregnancies AB induced Hx Number of Living Children AB spontaneous
[2023-12-18] MEDS: Acetaminophen 325 MG TAB 650 MG PO (11:01)
[2023-12-18] MEDS: Lidocaine 5% Patch 1 PATCH TP (11:02)
--- NOTE | 2023-12-18 12:48 | DI.VRAD_ITS ---
PROCEDURE INFORMATION: Exam: XR Left Forearm Exam date and time: 12/18/2023 11:31 AM Age: 63 years old Clinical indication: Injury or trauma; Fall; Work related; Blunt trauma (contusions or hematomas); Arm, lower; Left TECHNIQUE: Imaging protocol: Radiologic exam of the left forearm. Views: 2 views. COMPARISON: No relevant prior studies available. FINDINGS: Bones/joints: Normal. Soft tissues: Normal. IMPRESSION: No acute findings. Dictated and Authenticated by: Av Emanuel MD. Ordering:JEAN Timmons MD
--- NOTE | 2023-12-18 12:49 | DI.VRAD_ITS ---
PROCEDURE INFORMATION: Exam: XR Left Humerus Exam date and time: 12/18/2023 11:29 AM Age: 63 years old Clinical indication: Injury or trauma; Fall; Work related; Blunt trauma (contusions or hematomas); Arm, upper; Left TECHNIQUE: Imaging protocol: Radiologic exam of the left humerus. Views: 2 or more views. COMPARISON: CR XR RIBS LT PA CHEST 3V 12/18/2023 11:25 AM FINDINGS: Bones/joints: Mild degenerative disease of the left acromioclavicular joint. Cortical step-off at the radial neck, suspicious for an impacted fracture. Soft tissues: Normal. IMPRESSION: Cortical step-off at the radial neck suspicious for an impacted fracture. Dictated and Authenticated by: Av Emanuel MD. Ordering:JEAN Timmons MD
--- NOTE | 2023-12-18 12:51 | DI.VRAD_ITS ---
PROCEDURE INFORMATION: Exam: XR Left Ribs with PA Chest Exam date and time: 12/18/2023 11:25 AM Age: 63 years old Clinical indication: Injury or trauma; Fall; Work related; Rib area, left side; Blunt trauma TECHNIQUE: Imaging protocol: Radiologic exam of the left ribs with PA chest. Views: 3 views COMPARISON: CR XR PORTABLE CHEST AP 03/25/2019 1:06 PM FINDINGS: Lungs: Unremarkable. No consolidation. Pleural spaces: Unremarkable. No pleural effusion. No pneumothorax. Heart/Mediastinum: Unremarkable. No cardiomegaly. Bones/joints: Mild degenerative disease of the left acromioclavicular joint and thoracic spine. No acute fracture or dislocation. IMPRESSION: No acute fracture or dislocation. Dictated and Authenticated by: Av Emanuel MD. Ordering:JEAN Timmons MD
--- NOTE | 2023-12-18 14:28 | NUR.NOTE ---
[id number] Female Referral to ortho for left neck fracture needs to be seen within a week ADWOA Thompson Note:
[2023-12-18 14:50] VITALS: BP 150/110; PULSE 81; RESP 18; TEMP 36.8; O2SAT 97
== END 2023-12-18 14:52 | disposition home or self-care (01) ==
PROVIDERS: Emergency Provider Emergency Medicine; PCP Nurse Practitioner Adult Health
DX: S22.32XA Fracture of one rib, left side, initial encounter for closed fracture (principal); S52.135A Nondisplaced fracture of neck of left radius, initial encounter for closed fracture; W01.0XXA Fall on same level from slipping, tripping and stumbling without subsequent striking against object, initial encounter; Y93.01 Activity, walking, marching and hiking; Y99.0 Civilian activity done for income or pay; Z87.891 Personal history of nicotine dependence
CPT/HCPCS: 71101; 99283; 73060; 73090

== ENCOUNTER 2023-12-23 10:37 | Outpatient (CLI) | payer OTHER, SELFPAY ==
--- NOTE | 2023-12-23 10:15 | DI.RAD_ITS ---
Exam(s) XR ELBOW LT COMPLETE EXAM: XR ELBOW LT COMPLETE CLINICAL HISTORY: F/U FRACTURE. TECHNIQUE: 2D digital imaging was performed of the left elbow. Images were obtained. AP, lateral and oblique views were obtained. COMPARISON: CR,XR XR FOREARM LT from 12/18/2023 CR,XR XR HUMERUS LT from 12/18/2023 FINDINGS: There is no change in alignment of the radial neck. No periosteal reaction is seen. There is a join t effusion which is small. The distal humerus and proximal ulna are unremarkable. IMPRESSION: DATA REPOSITORY: RADIATION DOSE DELIVERED:
== END 2023-12-23 10:38 | disposition home or self-care (01) ==
LOC: DIORS 10:37
PROVIDERS: PCP Nurse Practitioner Adult Health; Referring Provider Nurse Practitioner Adult Health; Visit Provider Physician Assistant
DX: S52.132A Displaced fracture of neck of left radius, initial encounter for closed fracture (principal)
CPT/HCPCS: 73080

== ENCOUNTER 2024-01-02 09:10 | Outpatient (CLI) | payer OTHER, SELFPAY ==
--- NOTE | 2024-01-02 09:00 | DI.RAD_ITS ---
Exam(s) XR ELBOW LT COMPLETE EXAM: XR ELBOW LT COMPLETE CLINICAL HISTORY: left radius fracture. TECHNIQUE: 2D digital imaging was performed. Three views. COMPARISON: CR XR ELBOW LT COMPLETE from 12/23/2023 FINDINGS: BONES: Stable alignment of radial neck fracture. No new fracture is present. No bony destructive les ion is seen. JOINTS: The elbow is normally aligned. The joint effusion has decreased in size. Mild degenerative c hanges. SOFT TISSUE: Normal. IMPRESSION: Stable alignment of radial neck fracture DATA REPOSITORY: RADIATION DOSE DELIVERED:
--- NOTE | 2024-01-02 09:15 | DI.RAD_ITS ---
Exam(s) XR WRIST LT COMPLETE EXAM: XR WRIST LT COMPLETE CLINICAL HISTORY: F/U L RAD FX. TECHNIQUE: 2D digital imaging was performed. Three views. COMPARISON: CR,XR XR FOREARM LT from 12/18/2023 FINDINGS: BONES: No acute fracture is present. No bony destructive lesion is seen. JOINTS: The carpal bones are normally aligned. SOFT TISSUE: Normal. IMPRESSION: Unremarkable radiographs of the left wrist. DATA REPOSITORY: RADIATION DOSE DELIVERED:
== END 2024-01-02 09:11 | disposition home or self-care (01) ==
PROVIDERS: PCP Nurse Practitioner Adult Health; Visit Provider Physician Assistant
DX: S52.132A Displaced fracture of neck of left radius, initial encounter for closed fracture (principal)
CPT/HCPCS: 73080; 73110

== ENCOUNTER 2024-01-16 15:44 | Outpatient (CLI) | payer OTHER, SELFPAY ==
--- NOTE | 2024-01-16 09:11 | DI.RAD_ITS ---
Exam(s) XR WRIST LT COMP NAVICULAR EXAM: XR WRIST LT COMP NAVICULAR CLINICAL HISTORY: L wrist injury. TECHNIQUE: 2D digital imaging was performed of the left wrist. Four images were obtained. Scaphoid , PA, oblique and lateral views were obtained. COMPARISON: CR XR WRIST LT COMPLETE from 01/02/2024 FINDINGS: BONES: No acute fracture is present. No bony destructive lesion is seen. JOINTS: The carpal bones are normally aligned. There are mild degenerative changes seen at the 1st CM C joint. SOFT TISSUE: Normal. IMPRESSION: Mild degenerative changes seen at the 1st CMC joint. DATA REPOSITORY: RADIATION DOSE DELIVERED:
== END 2024-01-16 15:45 | disposition home or self-care (01) ==
LOC: DIORS 15:45
PROVIDERS: PCP Nurse Practitioner Adult Health; Visit Provider Physician Assistant
DX: M19.032 Primary osteoarthritis, left wrist (principal)
CPT/HCPCS: 73110

== ENCOUNTER 2024-02-13 12:00 | Outpatient (CLI) | payer OTHER, SELFPAY ==
--- NOTE | 2024-02-13 08:46 | DI.RAD_ITS ---
Exam(s) XR WRIST LT COMPLETE EXAM: XR WRIST LT COMPLETE CLINICAL HISTORY: F/U FRACTURE. TECHNIQUE: 2D digital imaging was performed. Three views. COMPARISON: CR XR WRIST LT COMP NAVICULAR from 01/16/2024 FINDINGS: BONES: No discrete fracture is seen. No bony destructive lesion is seen. JOINTS: The carpal bones are normally aligned. Mild degenerative changes. SOFT TISSUE: Normal. IMPRESSION: No fracture is visible. DATA REPOSITORY: RADIATION DOSE DELIVERED:
== END 2024-02-13 12:01 | disposition home or self-care (01) ==
LOC: DIORS 12:01
PROVIDERS: PCP Nurse Practitioner Adult Health; Visit Provider Student in an Organized Health Care Education/Training Program
DX: S52.132D Displaced fracture of neck of left radius, subsequent encounter for closed fracture with routine healing (principal); X58.XXXD Exposure to other specified factors, subsequent encounter
CPT/HCPCS: 73110

== ENCOUNTER 2024-03-12 11:45 | Outpatient (CLI) | payer OTHER, SELFPAY ==
--- NOTE | 2024-03-12 08:50 | DI.RAD_ITS ---
Exam(s) XR ELBOW LT COMPLETE EXAM: XR ELBOW LT COMPLETE CLINICAL HISTORY: left elbow discomfort. TECHNIQUE: 2D digital imaging was performed of the left elbow. Three images were obtained. AP, lat eral and oblique views were obtained. COMPARISON: CR XR ELBOW LT COMPLETE from 01/02/2024 CR XR WRIST LT COMP NAVICULAR from 01/16/2024 CR XR WRIST LT COMPLETE from 02/13/[address] UPPER EXTREMITY LT WO from 02/29/2024 FINDINGS: BONES: The fracture at the junction of the left radial head neck appears well healed. No new fractur e is identified. No bony destructive lesion is seen. JOINTS: The elbow is normally aligned. No joint effusion is seen. SOFT TISSUE: Normal. IMPRESSION: No acute abnormality. DATA REPOSITORY: RADIATION DOSE DELIVERED:
== END 2024-03-12 11:46 | disposition home or self-care (01) ==
LOC: DIORS 11:46
PROVIDERS: PCP Nurse Practitioner Adult Health; Visit Provider Physician Assistant
DX: S52.132D Displaced fracture of neck of left radius, subsequent encounter for closed fracture with routine healing (principal); X58.XXXD Exposure to other specified factors, subsequent encounter
CPT/HCPCS: 73080

== ENCOUNTER 2024-08-10 00:04 | Outpatient (CLI) | payer OTHER, SELFPAY ==
--- NOTE | 2024-08-10 06:30 | DI.MRI_ITS ---
Exam(s) MR UPPER JOINT LT WO EXAM: MR UPPER JOINT LT WO CLINICAL HISTORY: pain,TENDONITIS LT ROTATOR CUFF,M75.82. TECHNIQUE: Multiplanar multisequence MRI was performed. COMPARISON: No exams were available for comparison FINDINGS: BONES: There is no fracture or contusion pattern. JOINTS: There are mild degenerative changes seen at the acromioclavicular joint. The glenohumeral jossie int is normal. TENDONS: Supraspinatus: There is thickening and intermediate signal seen in the supraspinatus tendon consisten t with tendinosis. Infraspinatus: Unremarkable. Subscapularis: There is tendinosis of the subscapularis tendon. Teres Minor: Unremarkable. Biceps and Barbeau: There is tendinosis seen in the biceps. MUSCLES: Unremarkable. GLENOID LABRUM: Unremarkable on this noncontrast examination. The anterior superior labrum is attenua svetlana which can be seen as a normal variant. SOFT TISSUES: Unremarkable. LIGAMENTS: Unremarkable. OTHER: Subacromial and subdeltoid bursae are unremarkable. IMPRESSION: 1. Tendinosis of the supraspinatus, subscapularis and biceps tendon. 2. No evidence of a rotator cuff tear. 3. Mild degenerative changes seen at the acromioclavicular joint. DATA REPOSITORY:
== END 2024-08-10 00:24 ==
LOC: DI 00:05
PROVIDERS: PCP Nurse Practitioner Adult Health; Visit Provider Student in an Organized Health Care Education/Training Program
DX: M75.82 Other shoulder lesions, left shoulder (principal)
CPT/HCPCS: 73221

== ENCOUNTER 2024-08-10 08:23 | Outpatient (CLI) | payer BC, SELFPAY ==
--- NOTE | 2024-08-10 07:30 | DI.MAMMO_ITS ---
Exam(s) MAMMO SCREENING EXAM: MAMMO SCREENING CLINICAL HISTORY: screening Z12.39 TECHNIQUE: Bilateral full field digital CC and MLO mammographic images were obtained with 3D tomosyn thesis and utilizing computer aided detection (CAD). COMPARISON: Available for comparison. FINDINGS: Masses/Architectural Distortion: None seen. Microcalcifications: No suspicious pleomorphic-type are seen. Skin Thickening/Nipple Retraction: None. IMPRESSION: 1. No significant interval change with no specific features of malignancy noted. 2. Unless there is more urgent need, screening mammography is recommended, as per [employer] guidelines. BI-RADS Category 1 - Negative Breast Density - Category B - Scattered areas of fibroglandular density Breast density category C or D implies that the patient has dense breast tissue. Dense breast tissue is very common and is not abnormal but dense breast tissue can make it harder to find cancer on a ma mmogram. Also, dense breast tissue may increase their breast cancer risk. This information about the result of the mammogram report was provided to the patient to raise their awareness. Use this report when you speak with the patient about their risks for breast cancer, which includes their family hist ory. At that time, you may recommend for more screening tests (Ultrasound or MRI) as they might be us eful based on their risk. A negative radiographic report should not delay biopsy if a dominant or clinically suspicious mass is present. Up to ten percent of cancers are not identified on mammography. A negative report may reinforce clinical impression. Adenosis and dense breasts may obscure an underlying neoplasm. False positive reports average 6 to 10%. Patient will receive a letter notifying them of these results.
== END 2024-08-10 08:43 ==
LOC: DI 08:23
PROVIDERS: PCP Nurse Practitioner Adult Health; Visit Provider Nurse Practitioner Adult Health
DX: Z12.31 Encounter for screening mammogram for malignant neoplasm of breast (principal); R92.323 Mammographic fibroglandular density, bilateral breasts
CPT/HCPCS: 77063; 77067

== ENCOUNTER 2024-08-10 08:37 | Outpatient (CLI) | payer BC, SELFPAY ==
[2024-08-10 09:50] LABS: Anion Gap 7.6 mmol/L (3-11); BUN 16 mg/dL (7-18); CO2 28.4 mmol/L (21.0-32.0); CREATININE 0.8 mg/dL (0.55-1.02); Calcium 9.1 mg/dL (8.5-10.1); Calculated LDL 116 mg/dL (<100); Chloride 103 mmol/L (98-107); Cholesterol 204 mg/dL (<200); Estimated GFR 81.21 (mL/min/1.73m2); Glucose 94 mg/dL (74-106); HDL Cholesterol 75 mg/dL (>or=50); Potassium 4.4 mmol/L (3.5-5.1); Sodium 139 mmol/L (136-145); Triglyceride 68 mg/dL (<150)
== END 2024-08-10 08:38 | disposition home or self-care (01) ==
LOC: LBO 08:37
PROVIDERS: PCP Nurse Practitioner Adult Health; Visit Provider Nurse Practitioner Adult Health
DX: I10 Essential (primary) hypertension (principal); Z13.220 Encounter for screening for lipoid disorders
CPT/HCPCS: 36415; 80048; 80061